=== PATIENT | male | born 1995 | race Hispanic/Latino ===

== ENCOUNTER 2017-05-06 12:27 | Emergency (ER) | payer OTHER ==
[2017-05-06 12:58] VITALS: BP 135/70
--- NOTE | 2017-05-06 13:39 | Emergency Department Report ---
ED General Adult HPI - General Chief complaint: Nausea/Vomiting/Diarrhea Stated complaint: ABDOMINAL PAIN Time Seen by Provider: 05/06/17 13:27 Source: patient Mode of arrival: Ambulatory Limitations: No Limitations - History of Present Illness Initial comments: 21-year-old male with a history of anxiety and H. pylori presents with dyspepsia and nausea. He has lost over 10 pounds over the last 4 days. Last night he went out drinking. He "drank a lot\\" of alcohol and ate pizza. He is worried that his H. pylori may be back. He feels a lot of acid in his stomach. He has no pain right now. It is unclear what medications have helped him in the past. He said he has not taken a Xanax in quite some time. He also ran out of Xanax. He wanted to take some medication in order to ensure a good vacation. He will be on a cruise within the next 10 days. He has a good appetite but he is currently afraid to eat. Severity scale (0 -10): 0 - Related Data Previous Rx's Medication Instructions Recorded Last Taken Type Omeprazole 40 mg PO DAILY 30 Days #30 05/06/17 Unknown Rx capsule. Allergies Allergy/AdvReac Type Severity Reaction Status Date / Time No Known Allergies Allergy Unverified 05/06/17 12:58 ED Review of Systems ROS: Stated complaint: ABDOMINAL PAIN Other details as noted in HPI Comment: All other systems reviewed and negative Constitutional: denies: chills, fever Eyes: denies: eye pain, eye discharge, vision change ENT: denies: ear pain, throat pain Respiratory: denies: cough, shortness of breath, wheezing Cardiovascular: denies: chest pain Endocrine: no symptoms reported Gastrointestinal: abdominal pain, nausea. denies: vomiting, diarrhea Genitourinary: denies: urgency, dysuria Musculoskeletal: denies: back pain, joint swelling, arthralgia Skin: denies: rash Neurological: denies: headache, weakness, paresthesias Psychiatric: anxiety. denies: depression Hematological/Lymphatic: denies: easy bleeding ED Past Medical Hx - Past Medical History Hx Psychiatric Treatment: Yes (Anxiety) Additional medical history: H. pylori - Surgical History Past Surgical History?: No - Medications Home Medications: Home Medications Medication Instructions Recorded Confirmed Last Taken Type Omeprazole 40 mg PO DAILY 30 Days #30 05/06/17 Unknown Rx capsule. ED Physical Exam - General Limitations: No Limitations General appearance: alert, in no apparent distress, other (well-appearing, pleasant) - Head Head exam: Present: atraumatic, normocephalic - Eye Eye exam: Present: normal appearance - ENT ENT exam: Present: normal orophraynx, mucous membranes moist - Neck Neck exam: Present: normal inspection. Absent: meningismus - Respiratory Respiratory exam: Present: normal lung sounds bilaterally. Absent: respiratory distress, wheezes, rales, rhonchi - Cardiovascular Cardiovascular Exam: Present: regular rate, normal rhythm, normal heart sounds. Absent: systolic murmur, diastolic murmur, rubs, gallop - GI/Abdominal GI/Abdominal exam: Present: soft, normal bowel sounds. Absent: distended, tenderness, guarding, rebound - Rectal Rectal exam: Present: deferred - Extremities Exam Extremities exam: Present: normal inspection - Back Exam Back exam: Present: normal inspection - Neurological Exam Neurological exam: Present: alert, oriented X3 - Psychiatric Psychiatric exam: Present: normal affect, normal mood - Skin Skin exam: Present: warm, dry, intact, normal color. Absent: rash ED Course Vital Signs 05/06/17 12:55 Temperature 98.1 F Pulse Rate 58 L Respiratory 16 Rate Blood Pressure 135/70 [Left] O2 Sat by Pulse 99 Oximetry ED Medical Decision Making - Lab Data Vital Signs - 24 hr 05/06/17 12:55 Temperature 98.1 F Pulse Rate 58 L Respiratory 16 Rate Blood Pressure 135/70 [Left] O2 Sat by Pulse 99 Oximetry - Medical Decision Making Mr. Gipson is a very pleasant healthy well-appearing male who presents with decreased appetite nd "acid" in the stomach. He has a history of H. pylori. I assumed the patient was diagnosed with PUD. I prescribed 30 day course of omeprazole. I gave discharge instructions. Discharged home in good condition. Critical care attestation.: If time is entered above; I have spent that time in minutes in the direct care of this critically ill patient, excluding procedure time. ED Disposition Clinical Impression: Dyspepsia, Helicobacter pylori (H. pylori) Disposition: - TO HOME OR SELFCARE Is pt being admited?: No Does the pt Need Aspirin: No Condition: Stable Instructions: Peptic Ulcer (ED) Prescriptions: Omeprazole 40 mg PO DAILY 30 Days #30 capsule. Referrals: [facility] [Outside] - 3-5 Days Time of Disposition: 13:43
== END 2017-05-06 13:50 | disposition home or self-care (01) ==
LOC: ED 12:27
DX: R10.13 Epigastric pain (principal); B96.81 Helicobacter pylori [H. pylori] as the cause of diseases classified elsewhere; F41.9 Anxiety disorder, unspecified
CPT/HCPCS: 99282